=== PATIENT | male | born 1945 | race Caucasian/White ===

== ENCOUNTER 2016-06-30 11:27 | Inpatient (IN) | payer OTHER, MEDICAID ==
[~2016-06-30] VITALS: Ht 172.7 cm; Wt 78.9 kg
[2016-06-30] MEDS ORDERED: DONE10TA4 PO (12:07)
[2016-06-30] MEDS ORDERED: RISP0.5T2 PO (12:07)
[2016-06-30] MEDS ORDERED: FLUO-120 PO (12:07)
[2016-06-30] MEDS ORDERED: MAGNESIUM HYDROXIDE 30 ML UDC PO PRN (12:30)
[2016-06-30] MEDS ORDERED: ACETAMINOPHEN 325 MG TABLET PO PRN (12:30)
[2016-06-30] MEDS ORDERED: MAG HYDROX/AL HYDROX/SIMETH 30 ML UDC PO PRN (12:30)
[2016-06-30 12:43] VITALS: BP 123/73
[2016-06-30 16:40] VITALS: BP 135/76
[2016-06-30] MEDS ORDERED: OLANZAPINE 10 MG VIAL IM ONE (17:00)
[2016-06-30] MEDS: QUETIAPINE FUMARATE 25 MG TABLET PO SCH ×2 (17:56→21:33)
[2016-06-30 19:42] VITALS: BP 114/72
[2016-06-30] MEDS: DIVALPROEX SODIUM 125 MG CAP.SPRINK PO SCH (21:33)
[2016-06-30] MEDS: TEMAZEPAM 7.5 MG CAPSULE PO PRN (22:42)
[2016-07-01 08:00] VITALS: BP 140/74
[2016-07-01] MEDS: DIVALPROEX SODIUM 125 MG CAP.SPRINK PO SCH ×3 (08:39→22:01)
[2016-07-01] MEDS: Fluoxetine 10 mg capsule PO SCH (08:40)
[2016-07-01] MEDS: QUETIAPINE FUMARATE 25 MG TABLET PO SCH ×3 (08:40→22:01)
[2016-07-01 11:52] LABS: ALBUMIN 3.7 g/dL (3.4-5.0); BILIRUBIN,TOTAL 1.6 mg/dL (0.2-1.0); CALCIUM, SERUM 9.1 mg/dL (8.5-10.1); CREATININE 1.2 mg/dL (0.6-1.3); POTASSIUM 4.3 mmol/L (3.5-5.1); TOTAL PROTEIN, SERUM 7.5 g/dL (6.4-8.2)
[2016-07-01] MEDS: LORAZEPAM 0.5 MG TABLET PO PRN ×4 (14:50→23:37)
[2016-07-01 16:00] VITALS: BP 120/77
[2016-07-01 19:58] VITALS: BP 134/65
[2016-07-01] MEDS: TEMAZEPAM 7.5 MG CAPSULE PO PRN (23:37)
[2016-07-02 08:00] VITALS: BP 137/70
[2016-07-02] MEDS: DIVALPROEX SODIUM 125 MG CAP.SPRINK PO SCH ×3 (09:40→21:39)
[2016-07-02] MEDS: QUETIAPINE FUMARATE 25 MG TABLET PO SCH ×3 (09:40→21:41)
[2016-07-02] MEDS: Fluoxetine 10 mg capsule PO SCH (09:44)
[2016-07-02] MEDS ORDERED: Z GUARD REMEDY 2 OZ OINT TP PRN (11:00)
[2016-07-02 16:00] VITALS: BP 142/83
[2016-07-02 20:03] VITALS: BP 138/86
[2016-07-02] MEDS: TEMAZEPAM 7.5 MG CAPSULE PO PRN (22:51)
[2016-07-03] MEDS: LORAZEPAM 0.5 MG TABLET PO PRN ×2 (01:47→08:04)
[2016-07-03 06:56] LABS: BASOPHILS % (AUTO) 0.1 % (0.0-2.0); DIFF TOTAL % 100 %; EOSINOPHILS # (AUTO) 0.1 /CMM (0.0-0.7); EOSINOPHILS % (AUTO) 0.6 % (0.0-6.0); HEMATOCRIT 41 % (39-51); HEMOGLOBIN 13.8 g/dL (13.5-17.5); LYMPHOCYTES # (AUTO) 1.1 /CMM (0.8-4.8); LYMPHOCYTES % (AUTO) 12.1 % (20.0-44.0); MEAN CORPUSCULAR HEMOGLOBIN 31 PG (26.0-33.0); MEAN CORPUSCULAR HGB CONC 34 g/dl (31.0-36.0); MEAN CORPUSCULAR VOLUME 92 fL (80-96); MONOCYTES # (AUTO) 0.7 /CMM (0.1-1.30); MONOCYTES % (AUTO) 8.4 % (2.0-12.0); NEUTROPHILS % (AUTO) 78.8 % (43.0-81.0); PLATELET COUNT (AUTO) 268 /CMM (150-450); RED BLOOD CELL COUNT(AUTO) 4.45 MIL/uL (4.5-6.0); WHITE BLOOD COUNT (AUTO) 8.9 K/uL (4.3-11.0)
[2016-07-03 07:09] LABS: ALBUMIN 3.5 g/dL (3.4-5.0); BILIRUBIN,TOTAL 1.6 mg/dL (0.2-1.0); CALCIUM, SERUM 8.7 mg/dL (8.5-10.1); CREATININE 1.2 mg/dL (0.6-1.3); POTASSIUM 3.8 mmol/L (3.5-5.1); TOTAL PROTEIN, SERUM 7.3 g/dL (6.4-8.2)
[2016-07-03] MEDS: QUETIAPINE FUMARATE 25 MG TABLET PO SCH ×3 (08:04→22:01)
[2016-07-03] MEDS: Fluoxetine 10 mg capsule PO SCH (08:05)
[2016-07-03] MEDS: DIVALPROEX SODIUM 125 MG CAP.SPRINK PO SCH ×3 (08:05→22:01)
[2016-07-03 08:21] VITALS: BP 124/82
[2016-07-03 15:38] LABS: KETONES,URINE NEGATIVE (NEGATIVE); LEUKOCYTE ESTERASE ,URINE NEGATIVE (NEGATIVE); PH,URINE 6.5 (5.0-8.0)
[2016-07-03 15:41] LABS: ADD UA MICROSCOPIC YES
[2016-07-03 15:56] LABS: ADD URINE CULTURE NO; RBC,URINE 0-2 /HPF (0-2); WBC,URINE 0-2 /HPF (0-3)
[2016-07-03 16:23] VITALS: BP 140/56
[2016-07-03] MEDS: Z GUARD REMEDY 4 OZ OINT TP PRN (17:25)
[2016-07-03] MEDS: Z GUARD REMEDY 2 OZ OINT TP SCH (17:27)
[2016-07-03 20:12] VITALS: BP 118/68
[2016-07-03] MEDS: TEMAZEPAM 7.5 MG CAPSULE PO PRN (23:26)
[2016-07-04] MEDS: Z GUARD REMEDY 2 OZ OINT TP SCH ×2 (06:13→18:23)
[2016-07-04 08:00] VITALS: BP 140/76
[2016-07-04] MEDS: DIVALPROEX SODIUM 125 MG CAP.SPRINK PO SCH ×3 (08:23→21:06)
[2016-07-04] MEDS: QUETIAPINE FUMARATE 25 MG TABLET PO SCH ×3 (08:23→16:41)
[2016-07-04] MEDS: Fluoxetine 10 mg capsule PO SCH (08:23)
[2016-07-04 16:00] VITALS: BP 141/77
[2016-07-04] MEDS: LORAZEPAM 0.5 MG TABLET PO PRN (16:41)
[2016-07-04 20:18] VITALS: BP 136/85
[2016-07-04] MEDS: TEMAZEPAM 7.5 MG CAPSULE PO PRN (21:07)
[2016-07-05 08:00] VITALS: BP 128/80
[2016-07-05] MEDS: DIVALPROEX SODIUM 125 MG CAP.SPRINK PO SCH ×3 (08:05→21:14)
[2016-07-05] MEDS: QUETIAPINE FUMARATE 25 MG TABLET PO SCH ×3 (08:05→16:43)
[2016-07-05] MEDS: Fluoxetine 10 mg capsule PO SCH (08:05)
[2016-07-05] MEDS: Z GUARD REMEDY 2 OZ OINT TP SCH ×2 (08:07→18:01)
[2016-07-05 09:52] LABS: CHOLESTEROL 159 mg/dL (<200); HDL CHOLESTEROL 46 mg/dL (40-60); LDL 94 mg/dL (0-99); TRIGLYCERIDES 82 mg/dL (30-150)
[2016-07-05 16:00] VITALS: BP 129/72
[2016-07-05] MEDS ORDERED: QUETIAPINE FUMARATE 25 MG TABLET PO SCH (17:00)
[2016-07-05 20:00] VITALS: BP 135/79
[2016-07-06] MEDS: Z GUARD REMEDY 2 OZ OINT TP SCH ×2 (05:53→17:16)
[2016-07-06] MEDS: Z GUARD REMEDY 4 OZ OINT TP PRN (05:53)
[2016-07-06 08:00] VITALS: BP 145/80
[2016-07-06] MEDS: Fluoxetine 10 mg capsule PO SCH (09:34)
[2016-07-06] MEDS: QUETIAPINE FUMARATE 25 MG TABLET PO SCH ×3 (09:34→17:15)
[2016-07-06] MEDS: DIVALPROEX SODIUM 125 MG CAP.SPRINK PO SCH ×3 (09:34→21:43)
[2016-07-06] MEDS: LORAZEPAM 0.5 MG TABLET PO PRN (11:53)
[2016-07-06 16:00] VITALS: BP 148/68
[2016-07-06 20:16] VITALS: BP 124/67
[2016-07-07] MEDS: Z GUARD REMEDY 2 OZ OINT TP SCH ×2 (06:36→18:30)
[2016-07-07 08:00] VITALS: BP 125/68
[2016-07-07] MEDS: Fluoxetine 10 mg capsule PO SCH (09:00)
[2016-07-07] MEDS: QUETIAPINE FUMARATE 25 MG TABLET PO SCH ×3 (09:00→16:13)
[2016-07-07] MEDS: DIVALPROEX SODIUM 125 MG CAP.SPRINK PO SCH ×3 (09:00→20:52)
[2016-07-07 16:00] VITALS: BP 153/80
[2016-07-07 18:45] VITALS: BP 117/74
[2016-07-07 20:00] VITALS: BP 143/69
[2016-07-08] MEDS: Z GUARD REMEDY 2 OZ OINT TP SCH ×2 (06:40→17:28)
[2016-07-08 08:00] VITALS: BP 122/56
[2016-07-08] MEDS: QUETIAPINE FUMARATE 25 MG TABLET PO SCH (08:33)
[2016-07-08] MEDS: DIVALPROEX SODIUM 125 MG CAP.SPRINK PO SCH ×3 (08:33→21:43)
[2016-07-08] MEDS: Fluoxetine 10 mg capsule PO SCH (08:33)
[2016-07-08] MEDS: LORAZEPAM 0.5 MG TABLET PO PRN (11:24)
[2016-07-08] MEDS: QUETIAPINE FUMARATE 100 MG TABLET PO SCH ×2 (13:07→16:10)
[2016-07-08 15:53] VITALS: BP 125/82
[2016-07-08 19:49] VITALS: BP 114/72
[2016-07-09] MEDS: Z GUARD REMEDY 2 OZ OINT TP SCH ×2 (06:49→17:59)
[2016-07-09 08:00] VITALS: BP 124/73
[2016-07-09] MEDS: QUETIAPINE FUMARATE 100 MG TABLET PO SCH ×3 (08:29→17:59)
[2016-07-09] MEDS: Fluoxetine 10 mg capsule PO SCH (08:29)
[2016-07-09] MEDS: DIVALPROEX SODIUM 125 MG CAP.SPRINK PO SCH ×3 (08:29→21:54)
[2016-07-09] MEDS: LORAZEPAM 0.5 MG TABLET PO PRN (08:31)
[2016-07-09 16:00] VITALS: BP 143/88
[2016-07-09 19:46] VITALS: BP 143/72
[2016-07-10] MEDS: Z GUARD REMEDY 2 OZ OINT TP SCH ×2 (06:29→17:15)
[2016-07-10 08:00] VITALS: BP 139/84
[2016-07-10] MEDS: DIVALPROEX SODIUM 125 MG CAP.SPRINK PO SCH ×3 (08:04→21:38)
[2016-07-10] MEDS: Fluoxetine 10 mg capsule PO SCH (08:04)
[2016-07-10] MEDS: QUETIAPINE FUMARATE 100 MG TABLET PO SCH ×3 (08:04→16:56)
[2016-07-10 16:00] VITALS: BP 139/90
[2016-07-10 20:00] VITALS: BP 152/64
[2016-07-11] MEDS: Z GUARD REMEDY 2 OZ OINT TP SCH ×2 (06:29→17:02)
[2016-07-11 07:03] VITALS: BP 130/72
[2016-07-11 08:00] VITALS: BP 109/65
[2016-07-11] MEDS: DIVALPROEX SODIUM 125 MG CAP.SPRINK PO SCH ×3 (08:28→21:02)
[2016-07-11] MEDS: QUETIAPINE FUMARATE 100 MG TABLET PO SCH ×3 (08:28→16:55)
[2016-07-11] MEDS: Fluoxetine 10 mg capsule PO SCH (08:28)
[2016-07-11 16:00] VITALS: BP 130/87
[2016-07-11 19:48] VITALS: BP 139/79
[2016-07-11] MEDS: TEMAZEPAM 7.5 MG CAPSULE PO PRN (21:02)
[2016-07-12] MEDS: Z GUARD REMEDY 2 OZ OINT TP SCH ×2 (06:08→18:20)
[2016-07-12 08:00] VITALS: BP 116/68
[2016-07-12] MEDS: QUETIAPINE FUMARATE 100 MG TABLET PO SCH ×3 (08:18→16:28)
[2016-07-12] MEDS: DIVALPROEX SODIUM 125 MG CAP.SPRINK PO SCH ×3 (08:18→23:46)
[2016-07-12] MEDS: Fluoxetine 10 mg capsule PO SCH (08:19)
[2016-07-12 16:00] VITALS: BP 138/80
[2016-07-12 20:21] VITALS: BP 146/84
[2016-07-12] MEDS: TEMAZEPAM 7.5 MG CAPSULE PO PRN (23:47)
[2016-07-13] MEDS: Z GUARD REMEDY 2 OZ OINT TP SCH ×2 (06:19→18:25)
[2016-07-13 08:00] VITALS: BP 142/80
[2016-07-13] MEDS: DIVALPROEX SODIUM 125 MG CAP.SPRINK PO SCH ×3 (09:17→22:49)
[2016-07-13] MEDS: QUETIAPINE FUMARATE 100 MG TABLET PO SCH ×3 (09:18→16:36)
[2016-07-13] MEDS: Fluoxetine 10 mg capsule PO SCH (09:18)
[2016-07-13 16:00] VITALS: BP 122/72
[2016-07-13] MEDS ORDERED: DIVALPROEX SODIUM 125 MG CAP.SPRINK PO SCH (17:00)
[2016-07-13] MEDS: LORAZEPAM 0.5 MG TABLET PO PRN (22:50)
[2016-07-13 23:39] VITALS: BP 165/136
[2016-07-14] MEDS: Z GUARD REMEDY 2 OZ OINT TP SCH ×2 (06:37→17:44)
[2016-07-14 08:00] VITALS: BP 122/77
[2016-07-14] MEDS: DIVALPROEX SODIUM 125 MG CAP.SPRINK PO SCH ×3 (08:27→21:08)
[2016-07-14] MEDS: Fluoxetine 10 mg capsule PO SCH (08:27)
[2016-07-14] MEDS: QUETIAPINE FUMARATE 100 MG TABLET PO SCH ×3 (08:27→16:20)
[2016-07-14] MEDS: LORAZEPAM 0.5 MG TABLET PO PRN (08:27)
[2016-07-14 15:47] VITALS: BP 147/85
[2016-07-14 21:00] VITALS: BP 97/55
[2016-07-14] MEDS: DONEPEZIL 5 MG TABLET PO SCH (21:08)
[2016-07-15] MEDS: Z GUARD REMEDY 2 OZ OINT TP SCH ×2 (06:03→16:59)
[2016-07-15 08:07] LABS: CALCIUM, SERUM 8.4 mg/dL (8.5-10.1); CREATININE 1.1 mg/dL (0.6-1.3); POTASSIUM 4.4 mmol/L (3.5-5.1)
[2016-07-15] MEDS: PANTOPRAZOLE 40 MG TABLET.DR PO SCH (08:29)
[2016-07-15] MEDS: DIVALPROEX SODIUM 125 MG CAP.SPRINK PO SCH ×3 (08:30→21:09)
[2016-07-15] MEDS: Fluoxetine 10 mg capsule PO SCH (08:30)
[2016-07-15] MEDS: QUETIAPINE FUMARATE 100 MG TABLET PO SCH ×3 (08:30→16:59)
[2016-07-15 08:41] VITALS: BP 125/67
[2016-07-15 16:00] VITALS: BP 139/78
[2016-07-15 19:53] VITALS: BP 134/78
[2016-07-15] MEDS: DONEPEZIL 5 MG TABLET PO SCH (21:08)
[2016-07-15] MEDS: TEMAZEPAM 7.5 MG CAPSULE PO PRN (21:09)
[2016-07-16] MEDS: LORAZEPAM 0.5 MG TABLET PO PRN (00:53)
[2016-07-16] MEDS: Z GUARD REMEDY 2 OZ OINT TP SCH ×2 (06:00→17:36)
[2016-07-16 08:00] VITALS: BP 102/60
[2016-07-16] MEDS: PANTOPRAZOLE 40 MG TABLET.DR PO SCH (08:38)
[2016-07-16] MEDS: DIVALPROEX SODIUM 125 MG CAP.SPRINK PO SCH ×3 (08:38→21:36)
[2016-07-16] MEDS: Fluoxetine 10 mg capsule PO SCH (08:39)
[2016-07-16] MEDS: QUETIAPINE FUMARATE 100 MG TABLET PO SCH ×3 (08:39→16:31)
[2016-07-16 16:00] VITALS: BP 114/74
[2016-07-16 19:46] VITALS: BP 146/82
[2016-07-16] MEDS: DONEPEZIL 5 MG TABLET PO SCH (21:35)
[2016-07-17] MEDS: Z GUARD REMEDY 4 OZ OINT TP PRN (05:37)
[2016-07-17] MEDS: Z GUARD REMEDY 2 OZ OINT TP SCH (05:38)
[2016-07-17 08:00] VITALS: BP 145/86
[2016-07-17] MEDS: QUETIAPINE FUMARATE 100 MG TABLET PO SCH ×2 (08:28→12:22)
[2016-07-17] MEDS: DIVALPROEX SODIUM 125 MG CAP.SPRINK PO SCH (08:28)
[2016-07-17] MEDS: Fluoxetine 10 mg capsule PO SCH (08:28)
[2016-07-17] MEDS: PANTOPRAZOLE 40 MG TABLET.DR PO SCH (08:28)
[2016-07-17] MEDS: LORAZEPAM 0.5 MG TABLET PO PRN (10:10)
[2016-07-17 16:00] VITALS: BP 123/67
== END 2016-07-17 16:56 | DRG 885 ==
LOC: GPS 11:27
PROVIDERS: ADMIT Psychiatry & Neurology Psychiatry; ATTEND Internal Medicine
DX: F29 Unspecified psychosis not due to a substance or known physiological condition (principal); N17.0 Acute kidney failure with tubular necrosis; N18.4 Chronic kidney disease, stage 4 (severe); F03.91 Unspecified dementia, unspecified severity, with behavioral disturbance; F39 Unspecified mood [affective] disorder; F32.9 Major depressive disorder, single episode, unspecified; F41.9 Anxiety disorder, unspecified; Z73.6 Limitation of activities due to disability; E80.6 Other disorders of bilirubin metabolism
CPT/HCPCS: 36415; 80048-TC; 80053-TC; 80061-TC; 80164-TC; 81000-TC; 83735-TC; 85025-TC; 87081-TC; 87086-TC; 97001-TC; 97116-TC; 97530-TC; J3490; Z7610